=== PATIENT | female | born 1965 | race Caucasian/White ===

== ENCOUNTER 2018-07-12 17:25 | Observation (INO) | payer OTHER, MEDICAID, SELFPAY ==
[2018-07-12] VITALS (7 sets, daily range): BP systolic 136–163; BP diastolic 69–92; PULSE 51–67; RESP 8–18; TEMP 36.8–37.7; O2SAT 95–100; BMI 27.8; BMI 28.8
--- NOTE | 2018-07-12 17:56 | DI.CT.S_ITS ---
PROCEDURE: CT ABDOMEN PELVIS W CON INDICATIONS: RLQ and RUQ tenderness, fever, n/v/d TECHNIQUE: After the administration of intravenous contrast, 5 mm thick sections acquired from the diaphragm to the symphysis. 5 mm coronal and sagittal reformats were acquired. For radiation dose reduction, the following was used: automated exposure control, adjustment of mA and/or kV according to patient size. COMPARISON: None. FINDINGS: Image quality: Excellent. ABDOMEN: Lung bases: Lung bases are clear. Heart size is normal. Solid organs: Liver is normal in size and enhancement. Gallbladder is within normal limits.. Biliary system is non dilated. Pancreas enhances normally. Spleen is normal in size and enhancement. No adrenal nodules. Kidneys demonstrate normal size and enhancement, without hydronephrosis. Peritoneum and bowel: Bowel loops demonstrate normal wall thickness and caliber. No free air. Small amount of free fluid is noted in the cul-de-sac of the pelvis. The appendix is not definitely visualized. Mild inflammatory changes noted adjacent to the tip of the cecum. Nodes and vessels: No retroperitoneal or mesenteric adenopathy by size criteria. Aorta and inferior vena cava are normal in size. Miscellaneous: Fat containing umbilical hernia. PELVIS: Genitourinary: Bladder wall thickness is normal. Small involuting cyst noted in the left adnexa. Miscellaneous: No inguinal hernias or adenopathy. Bones: No suspicious bony lesions. No vertebral body compression fractures. Spine degenerative disease and facet arthropathy noted. IMPRESSION: 1. The appendix is not definitely visualized. Mild inflammatory changes noted adjacent to the cecum. Early manifestation of acute appendicitis cannot be excluded. 2. Small amount of fluid in the cul-de-sac of the pelvis. 3. No free air. 4. No dilated loops of bowel. Dictated by: Miryam Mota MD, PhD on 07/12/2018 at 19:29 Approved by: Miryam Mota MD, PhD on 07/12/2018 at 19:39
--- NOTE | 2018-07-12 18:00 | ED.ABDPAIN ---
HPI - Abdominal Pain <JOEL Silva - Last Filed: 07/12/18 22:35> General Chief Complaint: Abdominal Pain Stated Complaint: took laxitives last night,vomiting all day today Time Seen by Provider: 07/12/18 17:44 Source: patient Mode of arrival: ambulatory Limitations: no limitations History of Present Illness HPI narrative: 53yo Female with PMH of IBS and Chronic constipation, took bisacodyl yesterday for constipation as she has not had a BM for 6 days. Then developed 9/10 abdominal cramping, vomiting, and small amounts of diarrhea with morning. Denies sick contacts. Denies sore throat, chest pain, SOB, blood in stool or vomit, dysuria, vaginal discharge. Related Data Home Medications Medication Instructions Recorded Confirmed linaclotide [Linzess] 1 tab PO DAILY 07/12/18 07/12/18 Allergies Allergy/AdvReac Type Severity Reaction Status Date / Time Penicillins Allergy Verified 07/12/18 17:35 Sulfa (Sulfonamide Allergy Verified 07/12/18 17:35 Antibiotics) Review of Systems <JOEL Silva - Last Filed: 07/12/18 22:35> Constitutional Denies lethargy and Denies weakness Eyes Denies change in vision and Denies loss of vision ENT Ears, Nose, Mouth, and Throat: Denies dizziness and Denies sore throat Cardiovascular Denies chest pain, Denies irregular heart rhythm, Denies lightheadedness, Denies palpitations, Denies dyspnea and Denies dyspnea on exertion Respiratory Denies cough, Denies dyspnea, Denies dyspnea on exertion and Denies wheezing Gastrointestinal Gastrointestinal: Reports abdominal pain, Denies melena, Reports bloating, Reports change in bowel habits, Reports constipation, Denies heartburn, Reports diarrhea, Reports loose stools, Reports nausea and Reports vomiting Genitourinary Denies hematuria, Denies flank pain, Denies urinary incontinence and Denies urinary urgency Integumentary/Breasts Denies pruritus, Denies erythema, Denies rash and Denies wounds Neurologic Denies confusion, Denies dizziness, Denies loss of vision and Denies weakness Psychiatric Denies anxiety, Denies confusion and Denies depression Endocrine Denies palpitations Hematologic/Lymphatic Denies easy bruising Allergic/Immunologic Denies wheezing PFSH <JOEL Silva - Last Filed: 07/12/18 22:35> Medical History Constipation (Acute) IBS (irritable bowel syndrome) (Chronic) Surgical History Status post (Resolved) Social History Smoking Status: Never smoker Social History Smoking Status: Never smoker Exam <JOEL Silva - Last Filed: 07/12/18 22:35> Initial Vital Signs Initial Vital Signs: Vital Signs Temperature 100 F H 07/12/18 17:30 Pulse Rate 64 07/12/18 17:30 Respiratory Rate 18 07/12/18 17:30 Blood Pressure 154/87 H 07/12/18 17:30 Pulse Oximetry 100 07/12/18 17:30 Const General: cooperative, healthy appearing, comfortable, well developed and other (In pain) Nutritional Appearance: well nourished Orientation: alert, awake, oriented x3 and not confused [facility] Head: normocephalic and atraumatic Nose: external nose normal and No nasal discharge Face and sinus: sinuses nontender, face symmetric, no sinus tenderness and No dry mucous membranes Mouth: oral mucosae normal and moist mucous membranes Teeth and gingiva: dentition normal Throat: tonsils normal and uvula midline Eyes General: appearance normal, both eyes and all related structures Eyelids: eyelids normal Conjunctivae: conjunctivae normal Sclera: sclerae normal Pupils: PERRL Neck Neck: normal visual inspection, trachea midline, No lymphadenopathy and No midline deformity Lymphatic: No lymphedema Chest Chest: normal inspection of the chest Resp Effort & Inspection: normal respiratory effort, able to speak in complete sentences, no respiratory distress and no use of accessory muscles Auscultation: clear to auscultation bilaterally, no rales, no rhonchi and no wheezes Cardio Rate: regular rate Rhythm: regular rhythm Heart Sounds: S1 normal, S2 normal, no click, no gallops, no murmurs and no rubs Pulses: normal peripheral pulses GI Inspection: non-distended Palpation: soft, no hepatosplenomegaly, guarding, No mass, No pulsatile mass, tender (RUQ and RLQ tenderness with palp) and No ascites Auscultation: normal bowel sounds and other (Patient activley vomiting. ) Back/Spine/Pelvis Back: No CVA tenderness Cervical Spine: No cervical ROM normal Thoracic/Lumbar Spine: thoracic and lumbar spine normal to inspection Skin General: no rashes or lesions noted, No erythema, No jaundice, No petechiae and No pallor Neuro General: alert, oriented x3, gait normal and no focal motor deficits Speech: speech normal Extrem General: full ROM, no clubbing, cyanosis or edema, no pedal edema and no calf tenderness Psych Appearance: well kempt Mental Status: mental status grossly normal Attitude: cooperative Thought Content: normal and suicidality Judgment: judgment good <Earl Woods DO - Last Filed: 07/13/18 00:06> Initial Vital Signs Initial Vital Signs: Vital Signs Temperature 100 F H 07/12/18 17:30 Pulse Rate 64 07/12/18 17:30 Respiratory Rate 18 07/12/18 17:30 Blood Pressure 154/87 H 07/12/18 17:30 Pulse Oximetry 100 07/12/18 17:30 Course <JOEL Silva - Last Filed: 07/12/18 22:35> Orders Ordered: ED Orders 07/12/18 17:56 CT abdomen pelvis w con Stat 07/12/18 18:16 Complete Blood Count AUTO DIFF Stat Comprehensive Metabolic Panel Stat Lipase Stat 07/12/18 20:20 Urine Microscopic Stat 07/12/18 21:48 Consult to Discharge Planning Routine Education, smoking cessation ONGOING 07/13/18 05:00 Complete Blood Count AUTO DIFF Routine Acetaminophen (Tylenol) 650 mg [place] Q6HR PRN PRN Reason: mild pain/t>100 Enoxaparin Sodium (Lovenox) 40 mg SUBCUT DAILY [facility] Last Admin: 07/12/18 22:08 Dose: 40 mg Metronidazole (Flagyl) 500 mg in 100 mls @ 100 mls/hr IV Q6H [facility] Last Admin: 07/12/18 23:18 Dose: 100 mls/hr Levofloxacin (Levaquin) 750 mg in 150 mls @ 100 mls/hr IV Q24H [facility] Last Admin: 07/12/18 23:50 Dose: 100 mls/hr Dextrose/Lactated Ringer's (Dextrose 5%-Lactated Ringers) 1,000 mls @ 150 mls/hr IV CONT [facility] Last Admin: 07/12/18 22:09 Dose: 150 mls/hr Ketorolac Tromethamine (Toradol) 30 mg IV Q6HR PRN PRN Reason: Pain, Moderate (4-6) Stop: 07/17/18 21:42 Last Admin: 07/12/18 22:35 Dose: 30 mg Lorazepam (Ativan) 1 mg IV Q4HR PRN PRN Reason: Anxiety Naloxone HCl (Narcan) 0.2 mg IV Q2MIN PRN PRN Reason: Opiate Reversal Ondansetron HCl (Zofran) 4 mg IV Q4HR PRN PRN Reason: Nausea And Vomiting Prochlorperazine (Compazine) 5 mg IV Q6HR PRN PRN Reason: Nausea Discontinued Medications Sodium Chloride (Normal Saline 0.9%) 1,000 mls @ 1,000 mls/hr IV BOLUS ONE Stop: 07/12/18 18:52 Last Infusion: 07/12/18 19:55 Dose: 0 mls/hr Admin: 07/12/18 18:23 Dose: 1,000 mls/hr Sodium Chloride (Normal Saline 0.9%) 1,000 mls @ 150 mls/hr IV CONT [facility] Last Infusion: 07/12/18 21:36 Dose: 0 mls/hr Admin: 07/12/18 21:15 Dose: 150 mls/hr Morphine Sulfate (Morphine) 2 mg IV NOW ONE Stop: 07/12/18 17:57 Last Admin: 07/12/18 18:22 Dose: 2 mg Morphine Sulfate (Morphine) 4 mg IV NOW ONE Stop: 07/12/18 19:45 Last Admin: 07/12/18 19:51 Dose: 4 mg Ondansetron HCl (Zofran) 4 mg IV NOW ONE Stop: 07/12/18 17:54 Last Admin: 07/12/18 18:22 Dose: 4 mg Ondansetron HCl (Zofran) 4 mg IV NOW ONE Stop: 07/12/18 19:22 Last Admin: 07/12/18 19:51 Dose: 4 mg Reevaluation(s) Reevaluation #1: Continued nausea and pain. Updated on test results, remains tender to RLQ and RUQ. Time: 19:50 Consultations Consultation #1: Called Dr. Melgar after radiology report obtained. Dr. Melgar in ED at 2051 Time: 20:05 Vital Signs - 8 hr 07/12/18 17:30 07/12/18 18:30 07/12/18 19:04 Temperature 100 F H Pulse Rate 64 51 L 56 L Respiratory Rate 18 13 8 L Blood Pressure 154/87 H Blood Pressure [Right Arm] 145/69 H Pulse Oximetry 100 100 100 07/12/18 20:21 07/12/18 21:00 07/12/18 21:35 Temperature 98.2 F Pulse Rate 59 L 61 60 Respiratory Rate 12 12 18 Blood Pressure 148/87 H Blood Pressure [Right Arm] 136/79 155/92 H Pulse Oximetry 99 100 95 <Earl Woods DO - Last Filed: 07/13/18 00:06> Orders Ordered: ED Orders 07/12/18 17:56 CT abdomen pelvis w con Stat 07/12/18 18:16 Complete Blood Count AUTO DIFF Stat Comprehensive Metabolic Panel Stat Lipase Stat 07/12/18 20:20 Urine Microscopic Stat 07/12/18 21:48 Consult to Discharge Planning Routine Education, smoking cessation ONGOING 07/13/18 05:00 Complete Blood Count AUTO DIFF Routine Acetaminophen (Tylenol) 650 mg [place] Q6HR PRN PRN Reason: mild pain/t>100 Enoxaparin Sodium (Lovenox) 40 mg SUBCUT DAILY [facility] Last Admin: 07/12/18 22:08 Dose: 40 mg Metronidazole (Flagyl) 500 mg in 100 mls @ 100 mls/hr IV Q6H [facility] Last Admin: 07/12/18 23:18 Dose: 100 mls/hr Levofloxacin (Levaquin) 750 mg in 150 mls @ 100 mls/hr IV Q24H [facility] Last Admin: 07/12/18 23:50 Dose: 100 mls/hr Dextrose/Lactated Ringer's (Dextrose 5%-Lactated Ringers) 1,000 mls @ 150 mls/hr IV CONT [facility] Last Admin: 07/12/18 22:09 Dose: 150 mls/hr Ketorolac Tromethamine (Toradol) 30 mg IV Q6HR PRN PRN Reason: Pain, Moderate (4-6) Stop: 07/17/18 21:42 Last Admin: 07/12/18 22:35 Dose: 30 mg Lorazepam (Ativan) 1 mg IV Q4HR PRN PRN Reason: Anxiety Naloxone HCl (Narcan) 0.2 mg IV Q2MIN PRN PRN Reason: Opiate Reversal Ondansetron HCl (Zofran) 4 mg IV Q4HR PRN PRN Reason: Nausea And Vomiting Prochlorperazine (Compazine) 5 mg IV Q6HR PRN PRN Reason: Nausea Discontinued Medications Sodium Chloride (Normal Saline 0.9%) 1,000 mls @ 1,000 mls/hr IV BOLUS ONE Stop: 07/12/18 18:52 Last Infusion: 07/12/18 19:55 Dose: 0 mls/hr Admin: 07/12/18 18:23 Dose: 1,000 mls/hr Sodium Chloride (Normal Saline 0.9%) 1,000 mls @ 150 mls/hr IV CONT [facility] Last Infusion: 07/12/18 21:36 Dose: 0 mls/hr Admin: 07/12/18 21:15 Dose: 150 mls/hr Morphine Sulfate (Morphine) 2 mg IV NOW ONE Stop: 07/12/18 17:57 Last Admin: 07/12/18 18:22 Dose: 2 mg Morphine Sulfate (Morphine) 4 mg IV NOW ONE Stop: 07/12/18 19:45 Last Admin: 07/12/18 19:51 Dose: 4 mg Ondansetron HCl (Zofran) 4 mg IV NOW ONE Stop: 07/12/18 17:54 Last Admin: 07/12/18 18:22 Dose: 4 mg Ondansetron HCl (Zofran) 4 mg IV NOW ONE Stop: 07/12/18 19:22 Last Admin: 07/12/18 19:51 Dose: 4 mg Vital Signs - 8 hr 07/12/18 17:30 07/12/18 18:30 07/12/18 19:04 Temperature 100 F H Pulse Rate 64 51 L 56 L Respiratory Rate 18 13 8 L Blood Pressure 154/87 H Blood Pressure [Right Arm] 145/69 H Pulse Oximetry 100 100 100 07/12/18 20:21 07/12/18 21:00 07/12/18 21:35 Temperature 98.2 F Pulse Rate 59 L 61 60 Respiratory Rate 12 12 18 Blood Pressure 148/87 H Blood Pressure [Right Arm] 136/79 155/92 H Pulse Oximetry 99 100 95 MDM - Abdominal Pain <Ashley NúñezJOEL - Last Filed: 07/12/18 22:35> Differential Diagnosis Differential diagnosis: Likely abdominal pain, acute appendicitis and constipation Medical Records Attestation: I reviewed the patient's medical records. Lab Data Attestation: I reviewed the patient's lab results. Result diagrams: 07/12/18 18:16 07/12/18 18:16 Lab Results 07/12/18 07/12/18 07/12/18 Range/Units 18:16 18:16 20:20 WBC 17.1 H (4.5-11.0) X10^3/uL RBC 5.31 H (4.0-5.2) X10^6/uL Hgb 13.9 (12.0-16.0) g/dL Hct 42.5 (36-46) % MCV 80.1 (80-100) fL MCH 26.1 (26-34) PG MCHC 32.6 (30-36) % RDW 14.8 (11.6-14.8) % Plt Count 374 (150-400) X10^3/uL Neut % (Auto) 86.3 H (50-75) % Lymph % (Auto) 8.3 L (25-40) % [place] % (Auto) 4.6 (3-14) % Eos % (Auto) 0.3 L (2-4) % Baso % (Auto) 0.5 (0-2) % Neut # (Auto) 62161 H (3602-3530) /uL Lymph # (Auto) 1400 (1276-4130) /uL [place] # (Auto) 800 (0-900) /uL Eos # (Auto) 100 (0-450) /uL Baso # (Auto) 100 (0-100) /uL Sodium 142 (137-145) mmol/L Potassium 4.2 (3.4-5.1) mmol/L Chloride 103 (98-107) mmol/L Carbon Dioxide 28 (22-32) mmol/L BUN 12 (7-17) mg/dL Creatinine 0.80 (0.52-1.04) mg/dL Estimated GFR > 60.0 (>60) mL/min BUN/Creatinine Ratio 15.0 (6-22) Glucose 127 H (70-100) mg/dL Calcium 9.6 (8.4-10.2) mg/dL Total Bilirubin 0.5 (0.2-1.3) mg/dL AST 25 (14-36) IU/L ALT 17 (9-52) IU/L Alkaline Phosphatase 69 (38-126) U/L Total Protein 8.0 (6.3-8.2) g/dL Albumin 4.6 (3.5-5.0) g/dL Globulin 3.4 (1.7-4.1) g/dL Albumin/Globulin Ratio 1.4 (1.0-2.8) Lipase 87 (23-300) U/L Urine RBC 1-5/hpf (0-5/HPF) Urine WBC None seen (0-5/HPF) Ur Squamous Epith Cells 1-5 /hpf (0-5/HPF) Urine Bacteria None seen (None) Ur Culture Indicated? Cult not indicated Point of care testing: Point of Care Testing Test Results Negative Urine Dip Bedside Urine Glucose Negative Bedside Urine Bilirubin - Negative Bedside Urine Ketone +/- 5 Urine Specific [place] 1.015 Bedside Urine Occult Blood +/- Bedside Urine pH 6.0 Bedside Urine Protein +/- 15 Bedside Urine Urobilinogen - Negative Bedside Urine Nitrite - Negative Bedside Urine Leukocytes - Negative Esterase Imaging Data CT scan - abdomen: Radiologist's impression: [place] [address] CT Scan Report Signed Patient: Michelle Diego [facility]#: [id number] : 1965Acct:[id number] Age/Sex: 53 / FDate of Service: 07/12/18 Loc: ED Accession Number: [id number] Procedure: CT abdomen pelvis w con Ordering Provider: Ashley Núñez PROCEDURE: CT ABDOMEN PELVIS W CON INDICATIONS: RLQ and RUQ tenderness, fever, n/v/d TECHNIQUE: After the administration of intravenous contrast, 5 mm thick sections acquired from the diaphragm to the symphysis. 5 mm coronal and sagittal reformats were acquired. For radiation dose reduction, the following was used: automated exposure control, adjustment of mA and/or kV according to patient size. COMPARISON: None. FINDINGS: Image quality: Excellent. ABDOMEN: Lung bases: Lung bases are clear. Heart size is normal. Solid organs: Liver is normal in size and enhancement. Gallbladder is within normal limits.. Biliary system is non dilated. Pancreas enhances normally. Spleen is normal in size and enhancement. No adrenal nodules. Kidneys demonstrate normal size and enhancement, without hydronephrosis. Peritoneum and bowel: Bowel loops demonstrate normal wall thickness and caliber. No free air. Small amount of free fluid is noted in the cul-de-sac of the pelvis. The appendix is not definitely visualized. Mild inflammatory changes noted adjacent to the tip of the cecum. Nodes and vessels: No retroperitoneal or mesenteric adenopathy by size criteria. Aorta and inferior vena cava are normal in size. Miscellaneous: Fat containing umbilical hernia. PELVIS: Genitourinary: Bladder wall thickness is normal. Small involuting cyst noted in the left adnexa. Miscellaneous: No inguinal hernias or adenopathy. Bones: No suspicious bony lesions. No vertebral body compression fractures. Spine degenerative disease and facet arthropathy noted. IMPRESSION: 1. The appendix is not definitely visualized. Mild inflammatory changes noted adjacent to the cecum. Early manifestation of acute appendicitis cannot be excluded. 2. Small amount of fluid in the cul-de-sac of the pelvis. 3. No free air. 4. No dilated loops of bowel. Dictated by: Miryam Mota MD, PhD on 07/12/2018 at 19:29 Approved by: Miryam Mota MD, PhD on 07/12/2018 at 19:39 MDM Narrative Medical decision making narrative: Highly suspicious of acute appendicitis ( fever, inflammatory changes on CT, right lower quadrant and right upper quadrant tenderness, elevated white count, nausea and vomiting ). Consult the surgeon patient admitted to inpatient observation. Differential includes constipation,(less likely due to diarrhea), IBS exacerbation, (less likely due to elevated white blood cell count and fever), gastrointestinal illness, and SBO (less likely due no findings on CT). <Earl Woods, DO - Last Filed: 07/13/18 00:06> Lab Data Lab Results 07/12/18 07/12/18 07/12/18 Range/Units 18:16 18:16 20:20 WBC 17.1 H (4.5-11.0) X10^3/uL RBC 5.31 H (4.0-5.2) X10^6/uL Hgb 13.9 (12.0-16.0) g/dL Hct 42.5 (36-46) % MCV 80.1 (80-100) fL MCH 26.1 (26-34) PG MCHC 32.6 (30-36) % RDW 14.8 (11.6-14.8) % Plt Count 374 (150-400) X10^3/uL Neut % (Auto) 86.3 H (50-75) % Lymph % (Auto) 8.3 L (25-40) % [place] % (Auto) 4.6 (3-14) % Eos % (Auto) 0.3 L (2-4) % Baso % (Auto) 0.5 (0-2) % Neut # (Auto) 82910 H (3540-1713) /uL Lymph # (Auto) 1400 (2369-1091) /uL [place] # (Auto) 800 (0-900) /uL Eos # (Auto) 100 (0-450) /uL Baso # (Auto) 100 (0-100) /uL Sodium 142 (137-145) mmol/L Potassium 4.2 (3.4-5.1) mmol/L Chloride 103 (98-107) mmol/L Carbon Dioxide 28 (22-32) mmol/L BUN 12 (7-17) mg/dL Creatinine 0.80 (0.52-1.04) mg/dL Estimated GFR > 60.0 (>60) mL/min BUN/Creatinine Ratio 15.0 (6-22) Glucose 127 H (70-100) mg/dL Calcium 9.6 (8.4-10.2) mg/dL Total Bilirubin 0.5 (0.2-1.3) mg/dL AST 25 (14-36) IU/L ALT 17 (9-52) IU/L Alkaline Phosphatase 69 (38-126) U/L Total Protein 8.0 (6.3-8.2) g/dL Albumin 4.6 (3.5-5.0) g/dL Globulin 3.4 (1.7-4.1) g/dL Albumin/Globulin Ratio 1.4 (1.0-2.8) Lipase 87 (23-300) U/L Urine RBC 1-5/hpf (0-5/HPF) Urine WBC None seen (0-5/HPF) Ur Squamous Epith Cells 1-5 /hpf (0-5/HPF) Urine Bacteria None seen (None) Ur Culture Indicated? Cult not indicated Point of care testing: Point of Care Testing Test Results Negative Urine Dip Bedside Urine Glucose Negative Bedside Urine Bilirubin - Negative Bedside Urine Ketone +/- 5 Urine Specific [place] 1.015 Bedside Urine Occult Blood +/- Bedside Urine pH 6.0 Bedside Urine Protein +/- 15 Bedside Urine Urobilinogen - Negative Bedside Urine Nitrite - Negative Bedside Urine Leukocytes - Negative Esterase Discharge Plan Departure Patient Disposition: Admitted as Observation Clinical Impression: Abdominal pain Qualifiers: Abdominal location: right lower quadrant Qualified Code(s): R10.31 - Right lower quadrant pain Leukocytosis Qualifiers: Leukocytosis type: unspecified Qualified Code(s): D72.829 - Elevated white blood cell count, unspecified Discharge Date/Time: 07/12/18 21:40 Interventions: ED Discharge Assessment Last Done: 07/12/18 21:37 Admit Date/Time: 07/12/18 21:09 Admit Provider: Agustin Melgar <Earl Woods DO - Last Filed: 07/13/18 00:06> Cosign ED Attending Luis Attestation: I was available for consultation during this patient's emergency department encounter
--- NOTE | 2018-07-12 18:04 | ED_ITS ---
HPI - Abdominal Pain <JOEL Silva - Last Filed: 07/12/18 22:35> General Chief Complaint: Abdominal Pain Stated Complaint: took laxitives last night,vomiting all day today Time Seen by Provider: 07/12/18 17:44 Source: patient Mode of arrival: ambulatory Limitations: no limitations History of Present Illness HPI narrative: 53yo Female with PMH of IBS and Chronic constipation, took b isacodyl yesterday for constipation as she has not had a BM for 6 days. Then developed 9/10 abdominal cramping, vomiting, and small amounts of diarrhea with morning. Denies sick contacts. Denies sore throat, chest pain, SOB, blood in stool or vomit, dysuria, vaginal discharge. Related Data Home Medications Medication Instructions Recorded Confirmed linaclotide [Linzess] 1 tab PO DAILY 07/12/18 07/12/18 Allergies Allergy/AdvReac Type Severity Reaction Status Date / Time Penicillins Allergy Verified 07/12/18 17:35 Sulfa (Sulfonamide Allergy Verified 07/12/18 17:35 Antibiotics) Review of Systems <JOEL Silva - Last Filed: 07/12/18 22:35> Constitutional Denies lethargy and Denies weakness Eyes Denies change in vision and Denies loss of vision ENT Ears, Nose, Mouth, and Throat: Denies dizziness and Denies sore throat Cardiovascular Denies chest pain, Denies irregular heart rhythm, Denies lightheadedness, Denies palpitations, Denies dyspnea and Denies dyspnea on exertion Respiratory Denies cough, Denies dyspnea, Denies dyspnea on exertion and Denies wheezing Gastrointestinal Gastrointestinal: Reports abdominal pain, Denies melena, Reports bloating, Reports change in bowel habits, Reports constipation, Denies heartburn, Reports diarrhea, Reports loose stools, Reports nausea and Reports vomiting Genitourinary Denies hematuria, Denies flank pain, Denies urinary incontinence and Denies urinary urgency Integumentary/Breasts Denies pruritus, Denies erythema, Denies rash and Denies wounds Neurologic Denies confusion, Denies dizziness, Denies loss of vision and Denies weakness Psychiatric Denies anxiety, Denies confusion and Denies depression Endocrine Denies palpitations Hematologic/Lymphatic Denies easy bruising Allergic/Immunologic Denies wheezing PFSH <JOLE Silva - Last Filed: 07/12/18 22:35> Medical History Constipation (Acute) IBS (irritable bowel syndrome) (Chronic) Surgical History Status post (Resolved) Social History Smoking Status: Never smoker Social History Smoking Status: Never smoker Exam <JOEL Silva - Last Filed: 07/12/18 22:35> Initial Vital Signs Initial Vital Signs: Vital Signs Temperature 100 F H 07/12/18 17:30 Pulse Rate 64 07/12/18 17:30 Respiratory Rate 18 07/12/18 17:30 Blood Pressure 154/87 H 07/12/18 17:30 Pulse Oximetry 100 07/12/18 17:30 Const General: cooperative, healthy appearing, comfortable, well developed and other (In pain) Nutritional Appearance: well nourished Orientation: alert, awake, oriented x3 and not confused [facility] Head: normocephalic and atraumatic Nose: external nose normal and No nasal discharge Face and sinus: sinuses nontender, face symmetric, no sinus tenderness and No dry mucous membranes Mouth: oral mucosae normal and moist mucous membranes Teeth and gingiva: dentition normal Throat: tonsils normal and uvula midline Eyes General: appearance normal, both eyes and all related structures Eyelids: eyelids normal Conjunctivae: conjunctivae normal Sclera: sclerae normal Pupils: PERRL Neck Neck: normal visual inspection, trachea midline, No lymphadenopathy and No midline deformity Lymphatic: No lymphedema Chest Chest: normal inspection of the chest Resp Effort & Inspection: normal respiratory effort, able to speak in complete sentences, no respiratory distress and no use of accessory muscles Auscultation: clear to auscultation bilaterally, no rales, no rhonchi and no wheezes Cardio Rate: regular rate Rhythm: regular rhythm Heart Sounds: S1 normal, S2 normal, no click, no gallops, no murmurs and no rubs Pulses: normal peripheral pulses GI Inspection: non-distended Palpation: soft, no hepatosplenomegaly, guarding, No mass, No pulsatile mass, tender (RUQ and RLQ tenderness with palp) and No ascites Auscultation: normal bowel sounds and other (Patient activley vomiting. ) Back/Spine/Pelvis Back: No CVA tenderness Cervical Spine: No cervical ROM normal Thoracic/Lumbar Spine: thoracic and lumbar spine normal to inspection Skin General: no rashes or lesions noted, No erythema, No jaundice, No petechiae and No pallor Neuro General: alert, oriented x3, gait normal and no focal motor deficits Speech: speech normal Extrem General: full ROM, no clubbing, cyanosis or edema, no pedal edema and no calf tenderness Psych Appearance: well kempt Mental Status: mental status grossly normal Attitude: cooperative Thought Content: normal and suicidality Judgment: judgment good <Earl Woods DO - Last Filed: 07/13/18 00:06> Initial Vital Signs Initial Vital Signs: Vital Signs Temperature 100 F H 07/12/18 17:30 Pulse Rate 64 07/12/18 17:30 Respiratory Rate 18 07/12/18 17:30 Blood Pressure 154/87 H 07/12/18 17:30 Pulse Oximetry 100 07/12/18 17:30 Course <JOEL Silva - Last Filed: 07/12/18 22:35> Orders Ordered: ED Orders 07/12/18 17:56 CT abdomen pelvis w con Stat 07/12/18 18:16 Complete Blood Count AUTO DIFF Stat Comprehensive Metabolic Panel Stat Lipase Stat 07/12/18 20:20 Urine Microscopic Stat 07/12/18 21:48 Consult to Discharge Planning Routine Education, smoking cessation ONGOING 07/13/18 05:00 Complete Blood Count AUTO DIFF Routine Acetaminophen (Tylenol) 650 mg AL Q6HR PRN PRN Reason: mild pain/t>100 Enoxaparin Sodium (Lovenox) 40 mg SUBCUT DAILY [facility] Last Admin: 07/12/18 22:08 Dose: 40 mg Metronidazole (Flagyl) 500 mg in 100 mls @ 100 mls/hr IV Q6H [facility] Last Admin: 07/12/18 23:18 Dose: 100 mls/hr Levofloxacin (Levaquin) 750 mg in 150 mls @ 100 mls/hr IV Q24H [facility] Last Admin: 07/12/18 23:50 Dose: 100 mls/hr Dextrose/Lactated Ringer's (Dextrose 5%-Lactated Ringers) 1,000 mls @ 150 mls/hr IV CONT [facility] Last Admin: 07/12/18 22:09 Dose: 150 mls/hr Ketorolac Tromethamine (Toradol) 30 mg IV Q6HR PRN PRN Reason: Pain, Moderate (4-6) Stop: 07/17/18 21:42 Last Admin: 07/12/18 22:35 Dose: 30 mg Lorazepam (Ativan) 1 mg IV Q4HR PRN PRN Reason: Anxiety Naloxone HCl (Narcan) 0.2 mg IV Q2MIN PRN PRN Reason: Opiate Reversal Ondansetron HCl (Zofran) 4 mg IV Q4HR PRN PRN Reason: Nausea And Vomiting Prochlorperazine (Compazine) 5 mg IV Q6HR PRN PRN Reason: Nausea Discontinued Medications Sodium Chloride (Normal Saline 0.9%) 1,000 mls @ 1,000 mls/hr IV BOLUS ONE Stop: 07/12/18 18:52 Last Infusion: 07/12/18 19:55 Dose: 0 mls/hr Admin: 07/12/18 18:23 Dose: 1,000 mls/hr Sodium Chloride (Normal Saline 0.9%) 1,000 mls @ 150 mls/hr IV CONT [facility] Last Infusion: 07/12/18 21:36 Dose: 0 mls/hr Admin: 07/12/18 21:15 Dose: 150 mls/hr Morphine Sulfate (Morphine) 2 mg IV NOW ONE Stop: 07/12/18 17:57 Last Admin: 07/12/18 18:22 Dose: 2 mg Morphine Sulfate (Morphine) 4 mg IV NOW ONE Stop: 07/12/18 19:45 Last Admin: 07/12/18 19:51 Dose: 4 mg Ondansetron HCl (Zofran) 4 mg IV NOW ONE Stop: 07/12/18 17:54 Last Admin: 07/12/18 18:22 Dose: 4 mg Ondansetron HCl (Zofran) 4 mg IV NOW ONE Stop: 07/12/18 19:22 Last Admin: 07/12/18 19:51 Dose: 4 mg Reevaluation(s) Reevaluation #1: Continued nausea and pain. Updated on test results, remains tender to RLQ and RUQ. Time: 19:50 Consultations Consultation #1: Called Dr. Melgar after radiology report obtained. Dr. Melgar in ED at 2051 Time: 20:05 Vital Signs - 8 hr 07/12/18 17:30 07/12/18 18:30 07/12/18 19:04 Temperature 100 F H Pulse Rate 64 51 L 56 L Respiratory Rate 18 13 8 L Blood Pressure 154/87 H Blood Pressure [Right Arm] 145/69 H Pulse Oximetry 100 100 100 07/12/18 20:21 07/12/18 21:00 07/12/18 21:35 Temperature 98.2 F Pulse Rate 59 L 61 60 Respiratory Rate 12 12 18 Blood Pressure 148/87 H Blood Pressure [Right Arm] 136/79 155/92 H Pulse Oximetry 99 100 95 <Earl Woods DO - Last Filed: 07/13/18 00:06> Orders Ordered: ED Orders 07/12/18 17:56 CT abdomen pelvis w con Stat 07/12/18 18:16 Complete Blood Count AUTO DIFF Stat Comprehensive Metabolic Panel Stat Lipase Stat 07/12/18 20:20 Urine Microscopic Stat 07/12/18 21:48 Consult to Discharge Planning Routine Education, smoking cessation ONGOING 07/13/18 05:00 Complete Blood Count AUTO DIFF Routine Acetaminophen (Tylenol) 650 mg AL Q6HR PRN PRN Reason: mild pain/t>100 Enoxaparin Sodium (Lovenox) 40 mg SUBCUT DAILY [facility] Last Admin: 07/12/18 22:08 Dose: 40 mg Metronidazole (Flagyl) 500 mg in 100 mls @ 100 mls/hr IV Q6H [facility] Last Admin: 07/12/18 23:18 Dose: 100 mls/hr Levofloxacin (Levaquin) 750 mg in 150 mls @ 100 mls/hr IV Q24H [facility] Last Admin: 07/12/18 23:50 Dose: 100 mls/hr Dextrose/Lactated Ringer's (Dextrose 5%-Lactated Ringers) 1,000 mls @ 150 mls/hr IV CONT [facility] Last Admin: 07/12/18 22:09 Dose: 150 mls/hr Ketorolac Tromethamine (Toradol) 30 mg IV Q6HR PRN PRN Reason: Pain, Moderate (4-6) Stop: 07/17/18 21:42 Last Admin: 07/12/18 22:35 Dose: 30 mg Lorazepam (Ativan) 1 mg IV Q4HR PRN PRN Reason: Anxiety Naloxone HCl (Narcan) 0.2 mg IV Q2MIN PRN PRN Reason: Opiate Reversal Ondansetron HCl (Zofran) 4 mg IV Q4HR PRN PRN Reason: Nausea And Vomiting Prochlorperazine (Compazine) 5 mg IV Q6HR PRN PRN Reason: Nausea Discontinued Medications Sodium Chloride (Normal Saline 0.9%) 1,000 mls @ 1,000 mls/hr IV BOLUS ONE Stop: 07/12/18 18:52 Last Infusion: 07/12/18 19:55 Dose: 0 mls/hr Admin: 07/12/18 18:23 Dose: 1,000 mls/hr Sodium Chloride (Normal Saline 0.9%) 1,000 mls @ 150 mls/hr IV CONT [facility] Last Infusion: 07/12/18 21:36 Dose: 0 mls/hr Admin: 07/12/18 21:15 Dose: 150 mls/hr Morphine Sulfate (Morphine) 2 mg IV NOW ONE Stop: 07/12/18 17:57 Last Admin: 07/12/18 18:22 Dose: 2 mg Morphine Sulfate (Morphine) 4 mg IV NOW ONE Stop: 07/12/18 19:45 Last Admin: 07/12/18 19:51 Dose: 4 mg Ondansetron HCl (Zofran) 4 mg IV NOW ONE Stop: 07/12/18 17:54 Last Admin: 07/12/18 18:22 Dose: 4 mg Ondansetron HCl (Zofran) 4 mg IV NOW ONE Stop: 07/12/18 19:22 Last Admin: 07/12/18 19:51 Dose: 4 mg Vital Signs - 8 hr 07/12/18 17:30 07/12/18 18:30 07/12/18 19:04 Temperature 100 F H Pulse Rate 64 51 L 56 L Respiratory Rate 18 13 8 L Blood Pressure 154/87 H Blood Pressure [Right Arm] 145/69 H Pulse Oximetry 100 100 100 07/12/18 20:21 07/12/18 21:00 07/12/18 21:35 Temperature 98.2 F Pulse Rate 59 L 61 60 Respiratory Rate 12 12 18 Blood Pressure 148/87 H Blood Pressure [Right Arm] 136/79 155/92 H Pulse Oximetry 99 100 95 MDM - Abdominal Pain <Ashley NúñezJOEL - Last Filed: 07/12/18 22:35> Differential Diagnosis Differential diagnosis: Likely abdominal pain, acute appendicitis and constipation Medical Records Attestation: I reviewed the patient's medical records. Lab Data Attestation: I reviewed the patient's lab results. Result diagrams: 07/12/18 18:16 07/12/18 18:16 Lab Results 07/12/18 07/12/18 07/12/18 Range/Units 18:16 18:16 20:20 WBC 17.1 H (4.5-11.0) X10^3/uL RBC 5.31 H (4.0-5.2) X10^6/uL Hgb 13.9 (12.0-16.0) g/dL Hct 42.5 (36-46) % MCV 80.1 (80-100) fL MCH 26.1 (26-34) PG MCHC 32.6 (30-36) % RDW 14.8 (11.6-14.8) % Plt Count 374 (150-400) X10^3/uL Neut % (Auto) 86.3 H (50-75) % Lymph % (Auto) 8.3 L (25-40) % [place] % (Auto) 4.6 (3-14) % Eos % (Auto) 0.3 L (2-4) % Baso % (Auto) 0.5 (0-2) % Neut # (Auto) 62433 H (4745-5803) /uL Lymph # (Auto) 1400 (3142-1432) /uL [place] # (Auto) 800 (0-900) /uL Eos # (Auto) 100 (0-450) /uL Baso # (Auto) 100 (0-100) /uL Sodium 142 (137-145) mmol/L Potassium 4.2 (3.4-5.1) mmol/L Chloride 103 (98-107) mmol/L Carbon Dioxide 28 (22-32) mmol/L BUN 12 (7-17) mg/dL Creatinine 0.80 (0.52-1.04) mg/dL Estimated GFR > 60.0 (>60) mL/min BUN/Creatinine Ratio 15.0 (6-22) Glucose 127 H (70-100) mg/dL Calcium 9.6 (8.4-10.2) mg/dL Total Bilirubin 0.5 (0.2-1.3) mg/dL AST 25 (14-36) IU/L ALT 17 (9-52) IU/L Alkaline Phosphatase 69 (38-126) U/L Total Protein 8.0 (6.3-8.2) g/dL Albumin 4.6 (3.5-5.0) g/dL Globulin 3.4 (1.7-4.1) g/dL Albumin/Globulin Ratio 1.4 (1.0-2.8) Lipase 87 (23-300) U/L Urine RBC 1-5/hpf (0-5/HPF) Urine WBC None seen (0-5/HPF) Ur Squamous Epith Cells 1-5 /hpf (0-5/HPF) Urine Bacteria None seen (None) Ur Culture Indicated? Cult not indicated Point of care testing: Point of Care Testing Test Results Negative Urine Dip Bedside Urine Glucose Negative Bedside Urine Bilirubin - Negative Bedside Urine Ketone +/- 5 Urine Specific [place] 1.015 Bedside Urine Occult Blood +/- Bedside Urine pH 6.0 Bedside Urine Protein +/- 15 Bedside Urine Urobilinogen - Negative Bedside Urine Nitrite - Negative Bedside Urine Leukocytes - Negative Esterase Imaging Data CT scan - abdomen: Radiologist's impression: [place] [address] CT Scan Report Signed Patient: Michelle Diego [facility]#: [id number] : 1965Acct:[id number] Age/Sex: 53 / FDate of Service: 07/12/18 Loc: ED Accession Number: [id number] Procedure: CT abdomen pelvis w con Ordering Provider: Ashley Núñez PROCEDURE: CT ABDOMEN PELVIS W CON INDICATIONS: RLQ and RUQ tenderness, fever, n/v/d TECHNIQUE: After the administration of intravenous contrast, 5 mm thick sections acquired from the diaphragm to the symphysis. 5 mm coronal and sagittal reformats were acquired. For radiation dose reduction, the following was used: automated exposure control, adjustment of mA and/or kV according to patient size. COMPARISON: None. FINDINGS: Image quality: Excellent. ABDOMEN: Lung bases: Lung bases are clear. Heart size is normal. Solid organs: Liver is normal in size and enhancement. Gallbladder is within normal limits.. Biliary system is non dilated. Pancreas enhances normally. Spleen is normal in size and enhancement. No adrenal nodules. Kidneys demonstrate normal size and enhancement, without hydronephrosis. Peritoneum and bowel: Bowel loops demonstrate normal wall thickness and caliber. No free air. Small amount of free fluid is noted in the cul-de-sac of the pelvis. The appendix is not definitely visualized. Mild inflammatory changes noted adjacent to the tip of the cecum. Nodes and vessels: No retroperitoneal or mesenteric adenopathy by size criteria. Aorta and inferior vena cava are normal in size. Miscellaneous: Fat containing umbilical hernia. PELVIS: Genitourinary: Bladder wall thickness is normal. Small involuting cyst noted in the left adnexa. Miscellaneous: No inguinal hernias or adenopathy. Bones: No suspicious bony lesions. No vertebral body compression fractures. Spine degenerative disease and facet arthropathy noted. IMPRESSION: 1. The appendix is not definitely visualized. Mild inflammatory changes noted adjacent to the cecum. Early manifestation of acute appendicitis cannot be excluded. 2. Small amount of fluid in the cul-de-sac of the pelvis. 3. No free air. 4. No dilated loops of bowel. Dictated by: Miryam Mota MD, PhD on 07/12/2018 at 19:29 Approved by: Miryam Mota MD, PhD on 07/12/2018 at 19:39 MDM Narrative Medical decision making narrative: Highly suspicious of acute appendicitis ( fever, inflammatory changes on CT, right lower quadrant and right upper quadrant tenderness, elevated white count, nausea and vomiting ). Consult the surgeon patient admitted to inpatient observation. Differential includes constipation,(less likely due to diarrhea), IBS exacerbation, (less likely due to elevated white blood cell count and fever), gastrointestinal illness, and SBO (less likely due no findings on CT). <Earl Woods, DO - Last Filed: 07/13/18 00:06> Lab Data Lab Results 07/12/18 07/12/18 07/12/18 Range/Units 18:16 18:16 20:20 WBC 17.1 H (4.5-11.0) X10^3/uL RBC 5.31 H (4.0-5.2) X10^6/uL Hgb 13.9 (12.0-16.0) g/dL Hct 42.5 (36-46) % MCV 80.1 (80-100) fL MCH 26.1 (26-34) PG MCHC 32.6 (30-36) % RDW 14.8 (11.6-14.8) % Plt Count 374 (150-400) X10^3/uL Neut % (Auto) 86.3 H (50-75) % Lymph % (Auto) 8.3 L (25-40) % [place] % (Auto) 4.6 (3-14) % Eos % (Auto) 0.3 L (2-4) % Baso % (Auto) 0.5 (0-2) % Neut # (Auto) 72681 H (4888-0120) /uL Lymph # (Auto) 1400 (8757-8881) /uL [place] # (Auto) 800 (0-900) /uL Eos # (Auto) 100 (0-450) /uL Baso # (Auto) 100 (0-100) /uL Sodium 142 (137-145) mmol/L Potassium 4.2 (3.4-5.1) mmol/L Chloride 103 (98-107) mmol/L Carbon Dioxide 28 (22-32) mmol/L BUN 12 (7-17) mg/dL Creatinine 0.80 (0.52-1.04) mg/dL Estimated GFR > 60.0 (>60) mL/min BUN/Creatinine Ratio 15.0 (6-22) Glucose 127 H (70-100) mg/dL Calcium 9.6 (8.4-10.2) mg/dL Total Bilirubin 0.5 (0.2-1.3) mg/dL AST 25 (14-36) IU/L ALT 17 (9-52) IU/L Alkaline Phosphatase 69 (38-126) U/L Total Protein 8.0 (6.3-8.2) g/dL Albumin 4.6 (3.5-5.0) g/dL Globulin 3.4 (1.7-4.1) g/dL Albumin/Globulin Ratio 1.4 (1.0-2.8) Lipase 87 (23-300) U/L Urine RBC 1-5/hpf (0-5/HPF) Urine WBC None seen (0-5/HPF) Ur Squamous Epith Cells 1-5 /hpf (0-5/HPF) Urine Bacteria None seen (None) Ur Culture Indicated? Cult not indicated Point of care testing: Point of Care Testing Test Results Negative Urine Dip Bedside Urine Glucose Negative Bedside Urine Bilirubin - Negative Bedside Urine Ketone +/- 5 Urine Specific [place] 1.015 Bedside Urine Occult Blood +/- Bedside Urine pH 6.0 Bedside Urine Protein +/- 15 Bedside Urine Urobilinogen - Negative Bedside Urine Nitrite - Negative Bedside Urine Leukocytes - Negative Esterase Discharge Plan Departure Patient Disposition: Admitted as Observation Clinical Impression: Abdominal pain Qualifiers: Abdominal location: right lower quadrant Qualified Code(s): R10.31 - Right lower quadrant pain Leukocytosis Qualifiers: Leukocytosis type: unspecified Qualified Code(s): D72.829 - Elevated white blood cell count, unspecified Discharge Date/Time: 07/12/18 21:40 Interventions: ED Discharge Assessment Last Done: 07/12/18 21:37 Admit Date/Time: 07/12/18 21:09 Admit Provider: Agustin Melgar <Earl Woods DO - Last Filed: 07/13/18 00:06> Cosign ED Attending Luis Attestation: I was available for consultation during this patient's emergency department encounter
[2018-07-12 18:22] LABS: Add Manual Diff / Slide Review NO; Basophils Absolute Auto 100 /uL (0-100); Basophils Percent Auto 0.5 % (0-2); Eosinophils Absolute Auto 100 /uL (0-450); Eosinophils Percent Auto 0.3 % (2-4); Hematocrit 42.5 % (36-46); Hemoglobin 13.9 g/dL (12.0-16.0); Lymphocytes Absolute Auto 1400 /uL (1100-4500); Lymphocytes Percent Auto 8.3 % (25-40); Mean Corpuscular HGB Conc 32.6 % (30-36); Mean Corpuscular Hemoglobin 26.1 PG (26-34); Mean Corpuscular Volume 80.1 fL (80-100); Monocytes Absolute Auto 800 /uL (0-900); Monocytes Percent Auto 4.6 % (3-14); Neutrophils Absolute Auto 14700 /uL (1500-7000); Neutrophils Percent Auto 86.3 % (50-75); Platelet Count 374 X10^3/uL (150-400); Red Blood Cell Count 5.31 X10^6/uL (4.0-5.2); Red Cell Distribution Width 14.8 % (11.6-14.8); White Blood Cell Count 17.1 X10^3/uL (4.5-11.0)
[2018-07-12] MEDS: MORPHINE 2 MG/ML INJ IV (18:22)
[2018-07-12] MEDS: ONDANSETRON 4 MG/2 ML INJ IV ×2 (18:22→19:51)
[2018-07-12] MEDS: SODIUM CHLORIDE 0.9% 1,000 ML 1000 ML IV (18:23)
[2018-07-12 18:33] LABS: Alanine Aminotransferase 17 IU/L (9-52); Albumin 4.6 g/dL (3.5-5.0); Albumin Globulin Ratio 1.4 (1.0-2.8); Alkaline Phosphatase 69 U/L (38-126); Aspartate Aminotransferase 25 IU/L (14-36); Bilirubin Total 0.5 mg/dL (0.2-1.3); Blood Urea Nitrogen 12 mg/dL (7-17); Calcium 9.6 mg/dL (8.4-10.2); Carbon Dioxide 28 mmol/L (22-32); Chloride 103 mmol/L (98-107); Estimated Glomerular Filt Rate > 60.0 mL/min (>60); Globulin 3.4 g/dL (1.7-4.1); Glucose 127 mg/dL (70-100); HEMOLYSIS < 15 (0-50); Lipase 87 U/L (23-300); Potassium 4.2 mmol/L (3.4-5.1); Sodium 142 mmol/L (137-145)
[2018-07-12] MEDS: MORPHINE 4 MG/ML INJ IV (19:51)
--- NOTE | 2018-07-12 19:59 | PC.NURSE ---
Pt disconected and assisted tot he restroom.. slow steady gate.
[2018-07-12 20:20] LABS: Bacteria Urine None Seen; WBC Urine None Seen (0-5/HPF)
[2018-07-12 20:33] LABS: RBC Urine 1-5/HPF (0-5/HPF); Squamous Epithelial Cell Urine 1-5 /HPF (0-5/HPF)
[2018-07-12 20:34] LABS: Culture Indicated Urine Cult Not Indicated
[2018-07-12] MEDS: SODIUM CHLORIDE 0.9% 1,000 ML 150 ML IV (21:15)
--- NOTE | 2018-07-12 21:36 | PC.NURSE ---
normal saline to continue in acute care
--- NOTE | 2018-07-12 21:50 | PM.HP.1 ---
History of Present Illness Date Patient Seen: 07/12/18 Time Patient Seen: 21:30 Chief complaint: took laxitives last night,vomiting all day today Narrative: The patient is a woman who has had an upper respiratory tract infection symptoms for about 4 days prior to today. This consisted of sore throat body aches runny nose and a cough. Last evening the patient had not had a bowel movement in 5 days. She has IBS with constipation and normally takes Linzess and various laxatives. Unfortunately, she was visiting family and left them there. She has not had them for the last few days. So last evening she took a total of 7- 5 mg docusate pills(total of 35 mg). She awakened through the night with severe abdominal pain across her right abdomen to the left. This was accompanied by frequent bouts of vomiting at least 5 liquid stools. Her vomiting persisted all day long as has her pain. She has never had pain quite like this. Therefore her brought her to the emergency room. She was given some morphine prior to my assessment(a total of 6 mg) and said that her pain had subsided somewhat. She is still nauseated however. Of note, the dose of medication she took was not apparently unusual for her. It has resulted in cramping and vomiting in the past but never this severe. And has not been accompanied by the severe abdominal pain the patient has had. She denies dysuria but does have frequent urinary tract infections and takes antibiotics after intercourse to prevent infections. She has no dysuria hematuria or history kidney stones. Last period was in very early June and was normal. She is very regular. She has had no vaginal discharge. Her only abdominal operations have been 3 C sections. Patient History Medical History (Updated 07/12/18 @ 21:39 by JOEL Silva) Constipation (Acute) IBS (irritable bowel syndrome) (Chronic) Surgical History (Updated 07/12/18 @ 21:56 by Agustin Melgar MD) Status post (Resolved) Social History Smoking Status: Never smoker Family & Social History Safety & Behavioral: Feels Safe in Current Yes Environment Been Physically Hurt or No Threatened By a Person Tobacco & Substance use: Smoking Status Never smoker alcohol intake frequency a few times a month Substance Use Type does not use Meds Home Medications Medication Instructions Recorded Confirmed Type linaclotide [Linzess] 1 tab PO DAILY 07/12/18 07/12/18 History Allergies Allergy/AdvReac Type Severity Reaction Status Date / Time Penicillins Allergy Verified 07/12/18 17:35 Sulfa (Sulfonamide Allergy Verified 07/12/18 17:35 Antibiotics) Review of Systems Review of Systems Patient denies double vision pain in her eyes earache sore throats toothaches trouble swallowing. Denies seizures or blackouts. No asthma or chronic breathing problems. No heart problems or chest pain. No black or bloody bowel movements. No seizures or blackouts. Has been on Suboxone in the past. No unusual bruising or bleeding. No problems with her thyroid pancreas. Exam Vital Signs (past 8 hours): - 07/12/18 17:30 07/12/18 18:30 07/12/18 19:04 Temperature 100 F H Pulse Rate 64 51 L 56 L Respiratory Rate 18 13 8 L Blood Pressure 154/87 H Blood Pressure [Right Arm] 145/69 H Pulse Oximetry 100 100 100 07/12/18 20:21 07/12/18 21:00 Temperature Pulse Rate 59 L 61 Respiratory Rate 12 12 Blood Pressure Blood Pressure [Right Arm] 136/79 155/92 H Pulse Oximetry 99 100 Oxygen Delivery Method Room Air Narrative Exam Narrative: Patient lying on the stretcher no obvious distress. Her eyes are nonicteric pupils are equal round small reactive to light. Conjunctivae are pink. Ears without lesion. Nasal septum midline. Oral mucosa is pink and moist. Teeth are intact. No open lesions. Do not appreciate any redness in the throat at this time. Lungs are clear to auscultation without rales or rhonchi. Equal percussion. There are no nodes in the neck or supraclavicular areas. Trachea is midline mobile thyroid is not enlarged. No bruits of the neck. Heart regular rate and rhythm without murmur or gallop. Abdomen is scaphoid soft. There is no tenderness at this time at all to moderate to deep palpation. She does have a umbilical hernia with what feels like fat within it. It is not tender. scar noted. Pfannenstiel. Patient is alert and oriented. Speech rate and content are appropriate. Does not have good eye contact. Extremities without deformity or cyanosis. Objective Imaging CT scan - abdomen: My impression: Fairly unremarkable CT scan. She has very little intra-abdominal fat. Uterus may be a little large button otherwise unremarkable. Small and large intestine are normal. She has almost no stool in her colon. There may be some slight inflammation in the area of the cecum but I am not convinced. I certainly do not see an appendix. Labs Result Diagrams: 07/12/18 18:16 07/12/18 18:16 Labs: Laboratory Results - last 24 hr 07/12/18 07/12/18 07/12/18 18:16 18:16 20:20 WBC 17.1 H RBC 5.31 H Hgb 13.9 Hct 42.5 MCV 80.1 MCH 26.1 MCHC 32.6 RDW 14.8 Plt Count 374 Neut % (Auto) 86.3 H Lymph % (Auto) 8.3 L Woodward % (Auto) 4.6 Eos % (Auto) 0.3 L Baso % (Auto) 0.5 Neut # (Auto) 17424 H Lymph # (Auto) 1400 [place] # (Auto) 800 Eos # (Auto) 100 Baso # (Auto) 100 Sodium 142 Potassium 4.2 Chloride 103 Carbon Dioxide 28 BUN 12 Creatinine 0.80 Estimated GFR > 60.0 BUN/Creatinine Ratio 15.0 Glucose 127 H Calcium 9.6 Total Bilirubin 0.5 AST 25 ALT 17 Alkaline Phosphatase 69 Total Protein 8.0 Albumin 4.6 Globulin 3.4 Albumin/Globulin Ratio 1.4 Lipase 87 Urine RBC 1-5/hpf Urine WBC None seen Ur Squamous Epith Cells 1-5 /hpf Urine Bacteria None seen Ur Culture Indicated? Cult not indicated Assessment & Plan Assessment & Plan narrative: The patient is a woman with chronic IBS who took a large dose of laxative in developed abdominal pain nausea and vomiting and diarrhea. She does have an elevated white blood cell count and mild inflammation near her cecum. Her pending axes not seen. I can find no tenderness on exam though she was dosed with morphine. Even so I would have expected deep palpation to have some tenderness or guarding and there was none. Her CT scan is otherwise wholly unremarkable. Even the radiologist isn't convincing in his report but calls it possible early appendicitis. She just has the wrong history and physical exam for it. Therefore I have admitted her for observation. I explained to her that I am not giving her narcotics because they will cloud the issue of pain and tenderness and also make her IBS with constipation worse. but I will give her Toradol. I am very concerned about her past use of Suboxone and and wondering if this has any role in her issue at this time. We will hydrate her and begin her on broad-spectrum antibiotics as well. Ativan for anxiety.
[2018-07-12] MEDS: ENOXAPARIN 40 MG/0.4 ML SYRINGE SUBCUT (22:08)
[2018-07-12] MEDS: DEXTROSE 5%-LACTATED RINGERS 1,000 ML 150 ML IV (22:09)
[2018-07-12] MEDS: KETOROLAC 30 MG/ML VIAL IV (22:35)
[2018-07-12] MEDS: metroNIDAZOLE 500 MG/100 ML PIGGYBACK 100 MG IV (23:18)
[2018-07-12] MEDS: levoFLOXacin 750 MG/150 ML PIGGYBACK 100 MG IV (23:50)
[2018-07-13] VITALS (7 sets, daily range): BP systolic 130–144; BP diastolic 66–87; PULSE 62–79; RESP 17–18; TEMP 37–37.7; O2SAT 98–100
[2018-07-13] MEDS: PROCHLORPERAZINE 10 MG/2 ML VIAL 5 MG IV ×3 (00:37→18:02)
[2018-07-13] MEDS: LORazepam 2 MG/ML INJ 1 MG IV ×4 (00:37→18:00)
--- NOTE | 2018-07-13 01:23 | PC.NURSE ---
Admission Note: Received pt from evening shift. Pt in bed, SO Sushant bedside providing support. Completed admission and assessment, pt had active episodes of emesis during assessment, appeared to be strictly bite, pt also had episodes of dry heaving. Pt's assessment notable for GI upset with nausea and vomiting, pt reports 7/10 pain in abdomen that she's never experienced before. Offered pt APAP per rectum to which she declined. Skin notable only for large scars that on posterior upper arms from a previous skin removal surgery that she reports was done in [place]. Pt reports that she had a full physical done with her primary around 2-3 weeks ago. Oriented pt to room, call light, safety protocols, safety checks completed, educated on NPO status, gave pt glycerin swabs and allowed her to swish and spit water. Medicated pt per MAR with Compazine and Ativan for nausea and anxiety with good relief, pt appeared to be resting comfortably upon recheck. Pt is a low fall risk but activated bed alarm d/t Ativan. Pt aware that she must call before she gets up. Will continue to monitor.
[2018-07-13] MEDS: metroNIDAZOLE 500 MG/100 ML PIGGYBACK 100 MG IV ×4 (05:16→23:17)
[2018-07-13] MEDS: KETOROLAC 30 MG/ML VIAL IV ×3 (05:18→18:03)
[2018-07-13 06:01] LABS: Add Manual Diff / Slide Review NO; Basophils Absolute Auto 100 /uL (0-100); Basophils Percent Auto 0.5 % (0-2); Eosinophils Absolute Auto 0 /uL (0-450); Eosinophils Percent Auto 0.1 % (2-4); Hematocrit 37.7 % (36-46); Hemoglobin 12.5 g/dL (12.0-16.0); Lymphocytes Absolute Auto 2200 /uL (1100-4500); Lymphocytes Percent Auto 13.9 % (25-40); Mean Corpuscular Hemoglobin 26.2 PG (26-34); Mean Corpuscular Volume 79.5 fL (80-100); Monocytes Absolute Auto 1300 /uL (0-900); Monocytes Percent Auto 8.5 % (3-14); Neutrophils Absolute Auto 12000 /uL (1500-7000); Platelet Count 315 X10^3/uL (150-400); Red Blood Cell Count 4.75 X10^6/uL (4.0-5.2); Red Cell Distribution Width 14.8 % (11.6-14.8); White Blood Cell Count 15.6 X10^3/uL (4.5-11.0)
[2018-07-13] MEDS: ONDANSETRON 4 MG/2 ML INJ IV ×2 (06:30→10:26)
[2018-07-13] MEDS: DEXTROSE 5%-LACTATED RINGERS 1,000 ML 150 ML IV ×2 (08:06→17:29)
--- NOTE | 2018-07-13 08:53 | PC.NURSE ---
Am shift Start of shift, Pt crying in bed, No one cares that I am miserable Discussed options for nausea control, Ativan given and followed an hour later with Compazine. Pt reports mild improvement, but continued ABD cramping. No flatus. Hypoactive BT, mild ABD distention, tender to palpation. Remains NPO, oral care items provided for comfort. Family in visiting at this time.
--- NOTE | 2018-07-13 11:02 | PC.NURSE ---
Am Pt has been nauseated and remains painful after toradol. Ativan for anxiety. Emesis x1. Resting at present. Call into surgeon.
--- NOTE | 2018-07-13 13:25 | PM.PN.1 ---
Subjective Date Patient Seen: 07/13/18 Time Patient Seen: 11:25 Interval history: 53yo F with history of IBS on linzess plus suboxone and clonidine. Admitted with complaints of severe abd pain but unremarkable physical exam. Had a leukocytosis and CT findings of mild inflammation of the cecum, otherwise unremarkable. C/O same pain today, no distension, no nausea, no focal tenderness. Took laxatives yesterday, does not feel constipated; generally bowels move fairly well. Was started on abx and leukocytosis is improving, remains afebrile. Asks for morphine to help 'calm down.' Exam Vital Signs (past 8 hours): - 07/13/18 06:20 07/13/18 08:49 07/13/18 09:00 Temperature 98.6 F 98.6 F Pulse Rate 62 79 73 Respiratory Rate 18 17 Blood Pressure 141/87 H 130/68 Pulse Oximetry 100 99 Oxygen Delivery Method Room Air Narrative Exam Narrative: AAO, NAD but uncomfortable, overweight female EOMI, MMM, no scleral icterus unlabored RA soft, nd, c/o diffuse pain but no focal ttp MAEW visible skin dry and intact Objective Labs Result Diagrams: 07/13/18 05:34 07/12/18 18:16 Labs: Laboratory Results - last 24 hr 07/12/18 07/12/18 07/12/18 18:16 18:16 20:20 WBC 17.1 H RBC 5.31 H Hgb 13.9 Hct 42.5 MCV 80.1 MCH 26.1 MCHC 32.6 RDW 14.8 Plt Count 374 Neut % (Auto) 86.3 H Lymph % (Auto) 8.3 L Dickson % (Auto) 4.6 Eos % (Auto) 0.3 L Baso % (Auto) 0.5 Neut # (Auto) 09245 H Lymph # (Auto) 1400 [place]on # (Auto) 800 Eos # (Auto) 100 Baso # (Auto) 100 Sodium 142 Potassium 4.2 Chloride 103 Carbon Dioxide 28 BUN 12 Creatinine 0.80 Estimated GFR > 60.0 BUN/Creatinine Ratio 15.0 Glucose 127 H Calcium 9.6 Total Bilirubin 0.5 AST 25 ALT 17 Alkaline Phosphatase 69 Total Protein 8.0 Albumin 4.6 Globulin 3.4 Albumin/Globulin Ratio 1.4 Lipase 87 Urine RBC 1-5/hpf Urine WBC None seen Ur Squamous Epith Cells 1-5 /hpf Urine Bacteria None seen Ur Culture Indicated? Cult not indicated 07/13/18 05:34 WBC 15.6 H RBC 4.75 Hgb 12.5 Hct 37.7 MCV 79.5 L MCH 26.2 MCHC 33.0 RDW 14.8 Plt Count 315 Neut % (Auto) 77.0 H Lymph % (Auto) 13.9 L Dickson % (Auto) 8.5 Eos % (Auto) 0.1 L Baso % (Auto) 0.5 Neut # (Auto) 19863 H Lymph # (Auto) 2200 [place]ickson # (Auto) 1300 H Eos # (Auto) 0 Baso # (Auto) 100 Sodium Potassium Chloride Carbon Dioxide BUN Creatinine Estimated GFR BUN/Creatinine Ratio Glucose Calcium Total Bilirubin AST ALT Alkaline Phosphatase Total Protein Albumin Globulin Albumin/Globulin Ratio Lipase Urine RBC Urine WBC Ur Squamous Epith Cells Urine Bacteria Ur Culture Indicated? Assessment & Plan Assessment & Plan narrative: - complicated picture, complaints outweigh exam findings but with leukocytosis and minimal inflammatory changes on CT --> not c/w appendicitis --> leukocytosis resolving, afebrile; cont' abx today and may stop tomorrow if continues to improve --> exam remains unremarkable other than patient complaints - Trying to get a full picture of her home meds, reportedly on suboxone and clonidine but not recorded- these both affect bowel function and may be exacerbating her IBS; also on compazine but not sure if home med --> needs to stay on suboxone but may downgrade others --> no narcotics, on toradol and ativan for now - ok for CLD - needs to be OOB, walking Quality VTE Deep Vein Thrombosis/Pulmonary Embolism Present on Admission: No
--- NOTE | 2018-07-13 13:30 | P.PN_ITS ---
Subjective Date Patient Seen: 07/13/18 Time Patient Seen: 11:25 Interval history: 53yo F with history of IBS on linzess plus suboxone and clonidine. Admitted with complaints of severe abd pain but unremarkable physical exam. Had a leukocytosis and CT findings of mild inflammation of the c ecum, otherwise unremarkable. C/O same pain today, no distension, no nausea, no focal tenderness. Took laxatives yesterday, does not feel constipated; generally bowels move fairly well. Was started on abx and leukocytosis is improving, remains afebrile. Asks for morphine to help 'calm down.' Exam Vital Signs (past 8 hours): - 07/13/18 06:20 07/13/18 08:49 07/13/18 09:00 Temperature 98.6 F 98.6 F Pulse Rate 62 79 73 Respiratory Rate 18 17 Blood Pressure 141/87 H 130/68 Pulse Oximetry 100 99 Oxygen Delivery Method Room Air Narrative Exam Narrative: AAO, NAD but uncomfortable, overweight female EOMI, MMM, no scleral icterus unlabored RA soft, nd, c/o diffuse pain but no focal ttp MAEW visible skin dry and intact Objective Labs Result Diagrams: 07/13/18 05:34 07/12/18 18:16 Labs: Laboratory Results - last 24 hr 07/12/18 07/12/18 07/12/18 18:16 18:16 20:20 WBC 17.1 H RBC 5.31 H Hgb 13.9 Hct 42.5 MCV 80.1 MCH 26.1 MCHC 32.6 RDW 14.8 Plt Count 374 Neut % (Auto) 86.3 H Lymph % (Auto) 8.3 L [place] % (Auto) 4.6 Eos % (Auto) 0.3 L Baso % (Auto) 0.5 Neut # (Auto) 68408 H Lymph # (Auto) 1400 [place] # (Auto) 800 Eos # (Auto) 100 Baso # (Auto) 100 Sodium 142 Potassium 4.2 Chloride 103 Carbon Dioxide 28 BUN 12 Creatinine 0.80 Estimated GFR > 60.0 BUN/Creatinine Ratio 15.0 Glucose 127 H Calcium 9.6 Total Bilirubin 0.5 AST 25 ALT 17 Alkaline Phosphatase 69 Total Protein 8.0 Albumin 4.6 Globulin 3.4 Albumin/Globulin Ratio 1.4 Lipase 87 Urine RBC 1-5/hpf Urine WBC None seen Ur Squamous Epith Cells 1-5 /hpf Urine Bacteria None seen Ur Culture Indicated? Cult not indicated 07/13/18 05:34 WBC 15.6 H RBC 4.75 Hgb 12.5 Hct 37.7 MCV 79.5 L MCH 26.2 MCHC 33.0 RDW 14.8 Plt Count 315 Neut % (Auto) 77.0 H Lymph % (Auto) 13.9 L [place] % (Auto) 8.5 Eos % (Auto) 0.1 L Baso % (Auto) 0.5 Neut # (Auto) 59571 H Lymph # (Auto) 2200 [place] # (Auto) 1300 H Eos # (Auto) 0 Baso # (Auto) 100 Sodium Potassium Chloride Carbon Dioxide BUN Creatinine Estimated GFR BUN/Creatinine Ratio Glucose Calcium Total Bilirubin AST ALT Alkaline Phosphatase Total Protein Albumin Globulin Albumin/Globulin Ratio Lipase Urine RBC Urine WBC Ur Squamous Epith Cells Urine Bacteria Ur Culture Indicated? Assessment & Plan Assessment & Plan narrative: - complicated picture, complaints outweigh exam findings but with leukocytosis and minimal inflammatory changes on CT --> not c/w appendicitis --> leukocytosis resolving, afebrile; cont' abx today and may stop tomorrow if continues to improve --> exam remains unremarkable other than patient complaints - Trying to get a full picture of her home meds, reportedly on suboxone and clonidine but not recorded- these both affect bowel function and may be exacerbating her IBS; also on compazine but not sure if home med --> needs to stay on suboxone but may downgrade others --> no narcotics, on toradol and ativan for now - ok for CLD - needs to be OOB, walking Quality VTE Deep Vein Thrombosis/Pulmonary Embolism Present on Admission: No
--- NOTE | 2018-07-13 15:41 | CM.DANOTE ---
DCP/continued: Reviewed chart. Patient is a 53yr old female admitted to [facility] after taking too many laxatives. PCP listed is JOEL Gracia. Primary payor is 1)[place] 2)Medicaid. AUTO BODY REPAIR ESTIMATOR has made 2 attempts today to meet with patient. Both visits patient asleep. Patient's significant other/Chao in the room at second visit. He confirms that they live in [place]. He reports that they were in [place] because they have a boat. Chao denies drug or alcohol use by either of them. SO/Chao reports that patient was up a bit ago and took a shower. Chao asking AUTO BODY REPAIR ESTIMATOR about patient's lab results. Notified Chao that he would need to discuss with RN/MD. Notified Chao that results most likely will go to the patient when she is awake. P: Pending. Anticipate home but unclear at this time. Unable to do full assessment today because patient asleep. GI Feldman Discharge Planning/Care Management Advanced directive,confirm from FACILITY Start: 07/13/18 00:21 Freq: Q24H Status: Active Protocol: Document 07/13/18 09:00 NC (Rec: 07/13/18 15:20 NC [id number]) Advance Directive, confirm on record Time 09:00 Person contacted [place] Copy received No CM Discharge Assessment Start: 07/13/18 15:38 Freq: Status: Active Protocol: Document 07/13/18 15:38 KJS (Rec: 07/13/18 15:41 KJS [id number]) Discharge Planning Assessment Assigned Trust And Estates Attorney GI Feldman Contact Information Chao Almanza (boyfriend) [phone] Advance Directives? Yes: On File at [facility] History Provided By Patient Significant Other Medical Record Prior Living Arrangements Apartment/Condo Household Members significant other Type of transporation used prior to Drives own vehicle admit Independent with ADL's Yes Is patient alert and oriented? Yes Caregiver for Another No Barriers to Discharge No Discharge Plan Home Transportation Arrangement Significant other Additional Comment Pending hospitalization Whiteboard Updated in Patient Room with Yes name and ext. # of Trust And Estates Attorney Review Status In Process Next Review Type Continued Stay Review
[2018-07-13] MEDS: ENOXAPARIN 40 MG/0.4 ML SYRINGE SUBCUT (20:47)
[2018-07-13] MEDS: cloNIDine 0.1 MG TABLET PO (20:47)
[2018-07-13] MEDS: levoFLOXacin 750 MG/150 ML PIGGYBACK 100 MG IV (20:48)
--- NOTE | 2018-07-13 22:28 | PC.NURSE ---
Pt with nausea and ABD pain. Dr Parham and Carolynn do not want to order morphine. torodol for pain, ativan for anxiety, compazine and zofran for nausea. Pt slept most of shift. BT hypo. LAC D5LR @ 150 with flagyl and levo. 98%RA. tolerating some clears. Significant other, Chao rooming in.
[2018-07-14] VITALS (7 sets, daily range): BP systolic 103–148; BP diastolic 68–105; PULSE 59–86; RESP 16–18; TEMP 36.5–37.4; O2SAT 97–100
[2018-07-14] MEDS: DEXTROSE 5%-LACTATED RINGERS 1,000 ML 150 ML IV ×2 (03:13→18:09)
[2018-07-14] MEDS: metroNIDAZOLE 500 MG/100 ML PIGGYBACK 100 MG IV (05:44)
[2018-07-14] MEDS: cloNIDine 0.1 MG TABLET PO ×2 (08:26→23:07)
[2018-07-14] MEDS: KETOROLAC 30 MG/ML VIAL IV (08:28)
[2018-07-14] MEDS: LORazepam 2 MG/ML INJ 1 MG IV ×4 (08:29→23:08)
[2018-07-14 10:07] LABS: Add Manual Diff / Slide Review NO; Basophils Absolute Auto 100 /uL (0-100); Basophils Percent Auto 0.5 % (0-2); Eosinophils Absolute Auto 0 /uL (0-450); Eosinophils Percent Auto 0.1 % (2-4); Hematocrit 37.2 % (36-46); Hemoglobin 12.4 g/dL (12.0-16.0); Lymphocytes Absolute Auto 1500 /uL (1100-4500); Lymphocytes Percent Auto 13.7 % (25-40); Mean Corpuscular HGB Conc 33.3 % (30-36); Mean Corpuscular Hemoglobin 26.4 PG (26-34); Mean Corpuscular Volume 79.2 fL (80-100); Monocytes Absolute Auto 900 /uL (0-900); Monocytes Percent Auto 8.2 % (3-14); Neutrophils Absolute Auto 8500 /uL (1500-7000); Neutrophils Percent Auto 77.5 % (50-75); Platelet Count 287 X10^3/uL (150-400); Red Cell Distribution Width 14.6 % (11.6-14.8)
--- NOTE | 2018-07-14 10:45 | PM.PN.1 ---
Subjective Date Patient Seen: 07/14/18 Time Patient Seen: 09:45 Interval history: Pt resting and unwilling to open eyes or speak much today but does say abd somewhat better today; per , vomited yesterday. Per RN, did well with clears, did not walk much and needed much encouragement. Exam Vital Signs (past 8 hours): - 07/14/18 05:31 Temperature 98.8 F Pulse Rate 70 Respiratory Rate 16 Blood Pressure 145/72 H Pulse Oximetry 98 Oxygen Delivery Method Room Air Narrative Exam Narrative: AAO, NAD, refuses to open eyes or change from covered position during discussion, overweight female EOMI, MMM, no scleral icterus unlabored RA soft, nt/nd MAEW visible skin dry and intact Objective Labs Result Diagrams: 07/14/18 10:00 07/12/18 18:16 Labs: Laboratory Results - last 24 hr 07/14/18 10:00 WBC 11.0 RBC 4.70 Hgb 12.4 Hct 37.2 MCV 79.2 L MCH 26.4 MCHC 33.3 RDW 14.6 Plt Count 287 Neut % (Auto) 77.5 H Lymph % (Auto) 13.7 L Stephens % (Auto) 8.2 Eos % (Auto) 0.1 L Baso % (Auto) 0.5 Neut # (Auto) 8500 H Lymph # (Auto) 1500 Stephens # (Auto) 900 Eos # (Auto) 0 Baso # (Auto) 100 Assessment & Plan Assessment & Plan narrative: - complicated picture, complaints outweigh exam findings but with leukocytosis and minimal inflammatory changes on CT --> not c/w appendicitis or colitis --> leukocytosis resolving, afebrile; will stop abx --> exam remains unremarkable other than patient complaints, she does say she is somewhat better today - discussed mostly with that some of her home meds affect bowel function and may be exacerbating her IBS, recommend FU with PCP on d/c to eval need --> needs to stay on suboxone and will keep clonidine to prevent rebound issues --> no narcotics, on toradol and ativan for now - stay with CLD - needs to be OOB, walking more Quality VTE Deep Vein Thrombosis/Pulmonary Embolism Present on Admission: No
[2018-07-14] MEDS: ONDANSETRON 4 MG/2 ML INJ IV (13:23)
--- NOTE | 2018-07-14 14:45 | CM.DPNOTE ---
Reviewed chart. This MID LEVEL CLINICIAN met w.pt this afternoon, explained SW role. She explained that she feels confident about her return home when she is medically stable. She feels she has what she needs and has good support from [facility]. P: Home w/SO via pov when medically stable. GI Hudson
--- NOTE | 2018-07-14 15:09 | PC.NURSE ---
Per [facility] there is no advanced directive on file. Updated sig other.
--- NOTE | 2018-07-14 15:29 | PC.NURSE ---
Am shift Pt is reporting less nausea, no emesis this shift. Feels addition of clonidine has helped. BT hypoactive, and incont of loose stool x1. Stool was loose and very urgent per Pt. Showered with Sig. Other assist. Continue on clears. Zofran x1 to head off mild nausea. At shift change, Pt is reporting increased stomach acid, heartburn type discomfort. No PPI available. TIFFANY Traylor able to get order from Dr Parham.
[2018-07-14] MEDS: MAG HYDROX/ALUM/SIMETH 30 ML UDC PO (15:45)
[2018-07-14] MEDS: PANTOPRAZOLE 40 MG TABLET PO (17:21)
[2018-07-14] MEDS: ENOXAPARIN 40 MG/0.4 ML SYRINGE SUBCUT (23:07)
[2018-07-15] VITALS (7 sets, daily range): BP systolic 103–126; BP diastolic 67–77; PULSE 61–86; RESP 16–20; TEMP 36.5–37.3; O2SAT 96–99
[2018-07-15] MEDS: PROCHLORPERAZINE 10 MG/2 ML VIAL 5 MG IV ×2 (00:42→10:26)
[2018-07-15] MEDS: DEXTROSE 5%-LACTATED RINGERS 1,000 ML 75 ML IV ×2 (00:46→09:37)
[2018-07-15] MEDS: LORazepam 2 MG/ML INJ 1 MG IV ×3 (02:51→17:38)
[2018-07-15] MEDS: KETOROLAC 30 MG/ML VIAL IV ×3 (02:51→17:38)
[2018-07-15 05:55] LABS: Add Manual Diff / Slide Review NO; Basophils Absolute Auto 100 /uL (0-100); Basophils Percent Auto 0.8 % (0-2); Eosinophils Absolute Auto 100 /uL (0-450); Eosinophils Percent Auto 1.1 % (2-4); Hematocrit 36.6 % (36-46); Hemoglobin 12.2 g/dL (12.0-16.0); Lymphocytes Absolute Auto 2700 /uL (1100-4500); Lymphocytes Percent Auto 28.4 % (25-40); Mean Corpuscular HGB Conc 33.5 % (30-36); Mean Corpuscular Hemoglobin 26.6 PG (26-34); Mean Corpuscular Volume 79.4 fL (80-100); Monocytes Absolute Auto 900 /uL (0-900); Monocytes Percent Auto 9.9 % (3-14); Neutrophils Absolute Auto 5600 /uL (1500-7000); Neutrophils Percent Auto 59.8 % (50-75); Platelet Count 266 X10^3/uL (150-400); Red Cell Distribution Width 14.6 % (11.6-14.8); White Blood Cell Count 9.4 X10^3/uL (4.5-11.0)
[2018-07-15] MEDS: PANTOPRAZOLE 40 MG TABLET PO (07:34)
--- NOTE | 2018-07-15 11:06 | PC.NURSE ---
Day shift: Discussed with Pt and Pt's spouse the importance of ambulating in the halls today as much as tolerated. They are agreeable to this at this time. Dr Parham was in to see Pt and plans to d/c IV fluids, and the compazine. Will also put orders in for stool sample.
--- NOTE | 2018-07-15 11:49 | P.PN_ITS ---
Subjective Date Patient Seen: 07/15/18 Time Patient Seen: 11:49 Interval history: Feels better, still with some pain, now has 'every 2-3 minutes' diarrhea. Emiliano CLD. Not walking much per RN. Exam Vital Signs (past 8 hours): - 07/15/18 05:38 07/15/18 10:06 Temperature 97.7 F 98.2 F Pulse Rate 61 63 Respiratory Rate 20 17 Blood Pressure 126/77 125/74 Pulse Oximetry 98 98 Oxygen Delivery Method Room Air Oxygen Flow Rate 0 Narrative Exam Narrative: AAO, NAD, overweight female EOMI, MMM, no scleral icterus unlabored RA soft, nt/nd MAEW visible skin dry and intact Objective Labs Result Diagrams: 07/15/18 05:06 07/12/18 18:16 Labs: Laboratory Results - last 24 hr 07/15/18 05:06 WBC 9.4 RBC 4.60 Hgb 12.2 Hct 36.6 MCV 79.4 L MCH 26.6 MCHC 33.5 RDW 14.6 Plt Count 266 Neut % (Auto) 59.8 Lymph % (Auto) 28.4 Victoria % (Auto) 9.9 Eos % (Auto) 1.1 L Baso % (Auto) 0.8 Neut # (Auto) 5600 Lymph # (Auto) 2700 [place] # (Auto) 900 Eos # (Auto) 100 Baso # (Auto) 100 Assessment & Plan Assessment & Plan narrative: - complicated picture, complaints outweigh exam findings but with leukocytosis and minimal inflammatory changes on CT --> not c/w appendicitis or colitis --> leukocytosis resolving, afebrile; off abx since yesterday with no infection signs and improving exam --> wants to check stool samples given her diarrhea, he had a bad history of C diff; I explained I doubt we will find anything but glad to check to take off the differential - discussed again that some of her home meds affect bowel function and may be exacerbating her IBS, recommend FU with PCP on d/c to eval need; also reminded her that IBS is a chronic disorder that needs upkeep and mgmt, she will see her GI on d/c --> needs to stay on suboxone and will keep clonidine to prevent rebound issues --> no narcotics, on toradol and ativan for now - to FLD - needs to be OOB, walking more Quality VTE Deep Vein Thrombosis/Pulmonary Embolism Present on Admission: No
--- NOTE | 2018-07-15 12:09 | PC.NURSE ---
Day shift: This jingle writer and MANAGER HEART have been asking the Pt to get OOB and go for a walk. At this time Pt fell back asleep. Will ask her to walk after lunch.
[2018-07-15] MEDS: ONDANSETRON 4 MG/2 ML INJ IV (17:39)
--- NOTE | 2018-07-15 18:47 | PC.NURSE ---
Addendum entered by Caitlyn Figueredo R.N. 07/15/18 22:20: Denies further nausea tonight, reports intermittent abdomen discomfort. Denies need for Ativan or Zofran at this time. Tolerating few popsicles. She reports having several small orange spray bowel movements tonight. I reminded her that we need a stool sample tonight. Both hats that had been placed in toilet earlier were observed sitting by toilet. Clean hat placed. Instructed to call staff for any needs/concerns tonight. Original Note: Evening note: Michelle sleeping intermittently tonight, awake & ox3 at dinner. Able to drink smoothie and eat few bites of soup, reporting increased abdomen discomfort rated 6/10 and occasional nausea. Requesting my ativan, compazine, toradol & zofran--can't you just give them all to me? Talked with patient about how compazine was previously DC'd from orders earlier today after Dr Parham rounded. She said that's weird because that's what was working for me--can I have it back? and what can I do to have that back?--that's what helped me really sleep. I asked that she wait to see how Toradol, Zofran & Ativan work for her, instructing her that I will call surgeon medical information officer later if she is still not comfortable/nauseated. She is calm, cooperative, complaining of feeling cold, warm blankets given. Boyfriend at bedside.
[2018-07-15] MEDS: cloNIDine 0.1 MG TABLET PO (21:44)
[2018-07-15] MEDS: ENOXAPARIN 40 MG/0.4 ML SYRINGE SUBCUT (21:44)
[2018-07-16] MEDS: KETOROLAC 30 MG/ML VIAL IV ×2 (01:38→08:45)
[2018-07-16] MEDS: LORazepam 2 MG/ML INJ 1 MG IV ×2 (01:38→08:54)
[2018-07-16] MEDS: ONDANSETRON 4 MG/2 ML INJ IV (01:39)
[2018-07-16] MEDS: MAG HYDROX/ALUM/SIMETH 30 ML UDC PO (01:39)
[2018-07-16 03:43] VITALS: BP 118/62; PULSE 81; RESP 18; TEMP 36.6; O2SAT 96
[2018-07-16 08:00] VITALS: BP 123/75; PULSE 64; RESP 18; TEMP 36.6; O2SAT 98
[2018-07-16] MEDS: PANTOPRAZOLE 40 MG TABLET PO (08:44)
[2018-07-16] MEDS: cloNIDine 0.1 MG TABLET PO (08:44)
[2018-07-16] MEDS: SODIUM CHLORIDE 0.9% FLUSH 10 ML IV (08:47)
--- NOTE | 2018-07-16 11:36 | PM.DS.1 ---
History of Present Illness Date Patient Seen: 07/16/18 Time Patient Seen: 10:39 Chief complaint: took laxitives last night,vomiting all day today Narrative: 53yo F with IBS who complains of severe abd pain. Had been constipated so took several laxatives. Has not seen GI in a few years and is on several medications that affect gut motility. She had a leukoctyosis and possible inflammation of the cecum on imaging so was started on abx and brought in for monitoring. Discharge Providers Date of admission: 07/12/18 21:09 Discharge Date: 07/16/18 Primary care physician: JOEL Gracia Consults: 07/12/18 21:48 Consult to Discharge Planning Routine Comment: Discharge provider: Bonny Parham MD Summary Discharge Diagnosis: 1. Abdominal Pain 2. IBS Hospital Course: 53yo F with IBS who complains of severe abd pain. Had been constipated so took several laxatives. Has not seen GI in a few years and is on several medications that affect gut motility. She had a leukoctyosis and possible inflammation of the cecum on imaging so was started on abx and brought in for monitoring. She continued to improve, diet was advanced, and abx stopped as she showed no signs of infection. Exam Vital Signs (past 8 hours): - 07/16/18 03:43 07/16/18 08:00 Temperature 97.9 F 97.8 F Pulse Rate 81 64 Respiratory Rate 18 18 Blood Pressure 118/62 123/75 Pulse Oximetry 96 98 Oxygen Delivery Method Room Air Oxygen Flow Rate 0 Narrative Exam Narrative: AAO, NAD, overweight female of healthy weight EOMI, MMM, no scleral icterus unlabored RA soft, nt/nd MAEW visible skin dry and intact Objective Labs Result Diagrams: 07/15/18 05:06 07/12/18 18:16 Discharge Plan Discharge Plan Patient Disposition: Home Discharge comment: pt to follow up with GI and PCP Discharge Med Rec/Prescriptions Prescriptions: Continued linaclotide 145 mcg capsule 1 tab PO DAILY RF: 0 buprenorphine-naloxone 8-2 mg film 1 film Sublingual DAILY RF: 0 clonidine HCl 0.1 mg tablet 1 dose PO DIRECTED RF: 0 varenicline 0.5 mg (11)- 1 mg (42) tablets,dose pack 1 dose PO DIRECTED RF: 0 baclofen 20 mg tablet 20 mg PO TID PRN (Reason: BACK PAIN AND SLEEP) RF: 0 polyethylene glycol 3350 [Miralax] 17 gram Powder In Packet 17 g PO DAILY PRN (Reason: Constipation) RF: 0 nicotine 14 mg/24 hr patch 24 hour 14 mg topical DAILY RF: 0 trazodone 100 mg tablet 100 mg PO BEDTIME RF: 0 nitrofurantoin monohyd/m-cryst 100 mg capsule 100 mg PO DAILY RF: 0 Follow up/Referrals: Muna Rodriguez ARNP [Primary Care Provider] - Discharge Data Primary Care Provider: Muna Rodriguez Attending Provider: Agustin Melgar Admit Date/Time: 07/12/18 21:09 Quality VTE Deep Vein Thrombosis/Pulmonary Embolism Present on Admission: No
--- NOTE | 2018-07-16 13:08 | PC.NURSE ---
Day shift: Pt left unit via WC with this quality analyst/technical writer and spouse. Paperwork signed and all questions answered. Pt has all personal belongings. No new MD scrips.
== END 2018-07-16 13:09 | disposition home or self-care (01) ==
LOC: ED 18:06 → AC 21:10
PROVIDERS: Surgery; Admitting Provider Specialist; Emergency Provider Nurse Practitioner; PCP Internal Medicine; Visit Provider Specialist
DX: K58.2 Mixed irritable bowel syndrome (principal); R10.9 Unspecified abdominal pain; K59.09 Other constipation; R11.10 Vomiting, unspecified
CPT/HCPCS: 36415; 36591; 74177; 80053; 81003; 81015; 81025; 83690; 85025; 96361; 96365; 96366; 96368; 96372; 96375; 96376; 99284; G0378; J0780; J1650; J1885; J1956; J2060; J2270; J2405; J7121